=== PATIENT | female | born 1985 | race Caucasian/White ===

== ENCOUNTER 2016-09-22 07:27 | Emergency (ER) | payer MEDICAID ==
[2016-09-22 07:44] VITALS: BP 130/78
[2016-09-22] MEDS ORDERED: Dexamethasone 4 MG/ML SDV PO ONE (08:23)
--- NOTE | 2016-09-22 08:27 | EDM.PDOC ---
ED HPI ENT - General Chief Complaint: ENT Problem Stated Complaint: SORE THROAT Time Seen by Provider: 09/22/16 08:20 Source: Reports: Patient, RN notes reviewed History Limitations: Reports: No limitations - History of Present Illness INITIAL COMMENTS - FREE TEXT/NARRATIVE: 31-year-old female presents emergency department for a complaint of sore throat she has had sore throat for 6 days now has had 2 strep tests done which were both negative she says she has difficulty swallowing has had fevers for the last 2 days no cough - Related Data Allergies/ADRs: Allergies Allergy/AdvReac Type Severity Reaction Status Date / Time No Known Allergies Allergy Verified 09/22/16 07:44 Home Meds: Home Meds Cetirizine [ZyrTEC] 10 mg PO DAILY 09/22/16 [History] Cholecalciferol (Vitamin D3) [Vitamin D] 5,000 unit PO DAILY 09/22/16 [History] Citalopram [Citalopram HBr] 20 mg PO DAILY 09/22/16 [History] NK [No Known Home Meds] 09/22/16 [History] Past Medical History [employer] History: Reports: Polycystic Ovaries - Past Surgical History HEENT Surgical History: Reports: Tonsillectomy GI Surgical History: Reports: Cholecystectomy Social & Family History - Tobacco Use Smoking Status *Q: Never Smoker - Caffeine Use Caffeine Use: Reports: Coffee - Recreational Drug Use Recreational Drug Use: No ED ROS ENT - Review of Systems Review Of Systems: See Below Constitutional: Reports: fever, chills HEENT: Reports: Throat pain, Throat swelling Respiratory: Reports: no symptoms Cardiovascular: Reports: No symptoms GI/Abdominal: Reports: No symptoms : Reports: no symptoms ED EXAM, ENT - Physical Exam Exam: See Below Exam Limited By: No limitations General Appearance: alert, WD/WN, no apparent distress Eye Exam: bilateral eye: normal inspection Ears: normal external exam, normal canal, hearing grossly normal, normal TMs Nose: normal inspection, normal mucousa, no blood Mouth/Throat: Normal inspection, Normal gums, Normal lips, Normal teeth, Pharyngeal erythema, Tonsillar erythema, Tonsillar exudates Head: atraumatic, normocephalic Neck: normal inspection, supple, non-tender, full range of motion Respiratory/Chest: no respiratory distress, lungs clear, normal breath sounds, no accessory muscle use Cardiovascular: regular rate, rhythm, no murmur Course - Vital Signs Last Recorded V/S: Last Vital Signs Temp 100.6 F 09/22/16 07:46 Pulse 122 H 09/22/16 07:46 Resp 15 09/22/16 07:46 BP 130/78 09/22/16 07:46 Pulse Ox 95 09/22/16 07:46 - Orders/Labs/Meds Orders: Active Orders 24 hr Category Date Time Status CULTURE STREP A CONFIRMATION [RM] Stat Lab 09/22/16 07:52 Results STREP SCRN A RAPID W CULT CONF [RM] Stat Lab 09/22/16 07:52 Results Dexamethasone Med 09/22/16 08:23 Once 10 mg PO ONETIME ONE Departure - Departure Time of Disposition: 08:26 Disposition: Home, Self-Care 01 Condition: good Clinical Impression: Acute pharyngitis Qualifiers: Pharyngitis/tonsillitis etiology: unspecified etiology Qualified Code(s): J02.9 - Acute pharyngitis, unspecified Forms: ED Department Discharge Additional Instructions: Take the full course of antibiotics, Please followup with your primary care provider in 3-5 days if not better, please call return to the emergency department with worsening of symptoms. - My Orders Last 24 Hours: My Active Orders 09/22/16 07:52 CULTURE STREP A CONFIRMATION [RM] Stat STREP SCRN A RAPID W CULT CONF [RM] Stat 09/22/16 08:23 Dexamethasone 10 mg PO ONETIME ONE - Assessment/Plan Last 24 Hours: My Active Orders 09/22/16 07:52 CULTURE STREP A CONFIRMATION [RM] Stat STREP SCRN A RAPID W CULT CONF [RM] Stat 09/22/16 08:23 Dexamethasone 10 mg PO ONETIME ONE Plan: Assessment Acuity = daily Site and laterality = pharyngitis Etiology = probable bacterial cause Manifestations = pain Location of injury = home Rapid strep is negative culture is pending Plan Elected to treat empirically with dexamethasone elixir times one 10 mg dose and azithromycin follow up with primary care treatment if not better Patient was in agreement with the plan all questions were answered, they were instructed to return to the emergency department or call for worsening symptoms. This note was dictated using [employer] voice recognition software please call with any questions.
== END 2016-09-22 08:35 | disposition home or self-care (01) ==
LOC: JP.ED 07:27 → EDBD 07:27 → JP.ED 08:35
DX: J02.9 Acute pharyngitis, unspecified (principal); Z88.8 Allergy status to other drugs, medicaments and biological substances
CPT/HCPCS: 87081; 87430; 99283; J1100

== ENCOUNTER 2016-12-12 09:47 | Day surgery (SDC) | payer MEDICAID ==
[2016-12-12] MEDS ORDERED: Dextrose 5%-Lactated Ringers 1,000 ML IV SCH (10:00)
[2016-12-12] MEDS ORDERED: Glycopyrrolate 0.2 MG/ML 2 ML SYRINGE IVPUSH ONE (10:30)
[2016-12-12] MEDS ORDERED: Midazolam 1 MG/ML 2 ML SDV ONE (10:30)
[2016-12-12] MEDS ORDERED: Propofol 200 MG/20 ML SDV ONE (10:31)
[2016-12-12] MEDS ORDERED: fentaNYL 100 MCG/2 ML SDV ONE (10:31)
[2016-12-12 12:24] VITALS: BP 113/77
--- NOTE | 2016-12-17 08:14 | OR ---
DATE OF PROCEDURE: 12/12/2016 PREOPERATIVE DIAGNOSES: Epigastric pain and heartburn. POSTOPERATIVE DIAGNOSES: Epigastric pain and heartburn associated with; 1. Small hiatal hernia with a wide-open esophagogastric junction and moderately active gastroesophageal reflux disease. 2. Moderate antral gastritis. OPERATIVE PROCEDURES: Esophagogastroduodenoscopy with; 1. Biopsies of antrum for CLOtest. 2. Biopsies of esophagogastric junction for histologic evaluation. INDICATION FOR PROCEDURE: This is a 31-year-old presenting with some chronic gastroesophageal reflux disease. She has presently been on PPI use for some time. The plan is to proceed with upper GI endoscopy with biopsies and/or dilation as indicated. Potential risks including bleeding and perforation were discussed, and the patient wishes to proceed. DETAILS OF PROCEDURE: The patient was taken to the operating room and placed in a left lateral decubitus position. IV sedation was administered, after which, the upper GI endoscope was passed orally through the length of the esophagus and into the stomach with retroflexion view of the fundus, thereafter through the pyloric channel and then to the proximal duodenum. Findings included a normal hypopharynx, larynx, upper esophageal sphincter, and esophageal body. At the EG junction, the patient was noted to have 1 to 2 cm hiatal hernia. The esophagogastric junction on viewing it from the distal esophagus was completely wide open with there being no failure of function be it the stomach and the esophagus at this point. The distal esophageal mucosa was quite reddened and friable consistent with some active gastroesophageal reflux disease. With proximal stomach, apart from the hiatal hernia, was unremarkable. The scope was then passed into the distal stomach. There was moderate antral gastritis with the antrum being diffusely reddened, but without erosions or ulcers. Pyloric channel and duodenum at the junction of the third and fourth portions were unremarkable. At this point, biopsies were obtained from the antrum and sent for CLOtest for H. pylori and then multiple biopsies were obtained from the esophagogastric junction and sent for histologic evaluation. No bleeding from the biopsy sites was seen. The procedure then concluded. The patient was taken to the recovery room in a satisfactory condition. The plan will be to see the patient back next Friday to review treatment options. She appears to be a case at this point with reflux disease that is refractory to medical management. One complicating feature in this case is her morbid obesity. Her height is 5 feet 8 inches with a weight of 289 pounds, which will give her a BMI of somewhere in the mid to upper 40s, and a standard Johnathan fundoplication tends to be poorly efficacious and something like a gastric bypass would be more likely effective in terms of reflux disease and have the positive side effect of improving weight- related comorbidities both initially and over time. We will see the patient back next Friday to discuss treatment options. Steve Nguyen MD /[id number]
== END 2016-12-12 12:35 | disposition home or self-care (01) ==
LOC: JP.SDS 09:47
PROVIDERS: ATTEND Surgery
DX: K22.8 Other specified diseases of esophagus (principal); K44.9 Diaphragmatic hernia without obstruction or gangrene
CPT/HCPCS: 43239; 87081; 88305; J2250; J2704; J3010; J7042

== ENCOUNTER 2023-09-22 15:38 | Emergency (ER) | payer MEDICAID ==
[2023-09-22 17:10] VITALS: BP 124/86; PULSE 108
[2023-09-22 18:25] LABS: CORONAVIRUS COVID-19 NAA NEGATIVE (NEGATIVE); INFLUENZA A NAA NEGATIVE (NEGATIVE); INFLUENZA B NAA POSITIVE (NEGATIVE); RESPIRATORY SYNCYTIAL VIR NAA NEGATIVE (NEGATIVE)
[2023-09-22 18:50] LABS: BASOPHILS PERCENT AUTO 0.3 % (0.1-1.3); HEMATOCRIT 44.5 % (34.3-46.0); HEMOGLOBIN 15.8 g/dL (11.2-15.5); IMMATURE GRAN ABSOLUTE AUTO 0.03 K/uL (0.00-0.23); IMMATURE GRAN PERCENT AUTO 0.5 % (0.0-0.7); LYMPHOCYTES ABSOLUTE AUTO 2.05 K/uL (0.8-3.3); LYMPHOCYTES PERCENT AUTO 31.4 % (11.4-47.7); MEAN CORPUSCULAR HEMOGLOBIN 28.3 pg (31.6-35.5); MEAN CORPUSCULAR HGB CONC 35.5 g/dL (31.6-35.5); MEAN CORPUSCULAR VOLUME 79.7 fL (81.4-99.0); MONOCYTES PERCENT AUTO 7.7 % (3.3-12.6); NEUTROPHILS ABSOLUTE AUTO 3.93 K/uL (1.0-7.6); NEUTROPHILS PERCENT AUTO 60.1 % (40.0-78.1); PLATELET COUNT,PLT 192 K/uL (130-375); RED BLOOD CELL COUNT 5.58 M/uL (3.77-5.24); WHITE BLOOD CELL COUNT,WBC 6.5 K/uL (3.2-11.0)
[2023-09-22 18:53] LABS: BASOPHILS ABSOLUTE AUTO 0.02 K/uL (0.00-0.10)
[2023-09-22] MEDS: Ondansetron 4 MG/2 ML SDV IVPUSH ONE (18:53)
[2023-09-22] MEDS: Sodium Chloride 0.9% 1,000 ML IV SCH (18:53)
[2023-09-22 19:20] LABS: A/G RATIO 0.8 (1.2-2.2); ALANINE AMINOTRANSFERASE,ALT 32 U/L (12-78); ALBUMIN 3.6 g/dL (3.4-5.0); ALKALINE PHOSPHATASE 95 U/L (46-116); ASPARTATE AMNIOTRANSFERASE,AST 32 U/L (15-37); BILIRUBIN TOTAL 0.4 mg/dL (0.2-1.0); BLOOD UREA NITROGEN,BUN 8 mg/dL (7-18); CALCIUM 8.6 mg/dL (8.5-10.1); CARBON DIOXIDE,CO2 26 mmol/L (21-32); CHLORIDE,CL 98 mmol/L (100-108); CREATININE 0.7 mg/dL (0.6-1.0); EST CRCL DRUG DOSING (CG) 109.92 mL/min; ESTIMATED GFR 113 mL/min (>60); GLUCOSE RANDOM 117 mg/dL (74-106); POTASSIUM,K 3.7 mmol/L (3.6-5.2); SODIUM,NA 136 mmol/L (140-148)
[2023-09-22 19:22] LABS: ANION GAP 15.7 mmol/L (5.0-14.0)
== END 2023-09-22 19:53 | disposition home or self-care (01) ==
LOC: JP.ED 15:38
DX: J10.1 Influenza due to other identified influenza virus with other respiratory manifestations (principal); E86.0 Dehydration; F17.210 Nicotine dependence, cigarettes, uncomplicated; Z86.16 Personal history of COVID-19; Z90.49 Acquired absence of other specified parts of digestive tract
CPT/HCPCS: 0241U; 36415; 80053; 85025; 96361; 96374; 99284; J2405; J7030; 99283